=== PATIENT | female | born 1940 | race Caucasian/White ===

== ENCOUNTER 2020-11-21 17:58 | Emergency (ER) | payer MEDICARE, OTHER ==
[~2020-11-21] VITALS: Ht 167.6 cm; Wt 95.2 kg
[~2020-11-21 17:58] MED LIST: Icaps Areds Fo1 EACH; OSTERA TABLET1 EACH; VIT1CAPS12 PO
[2020-11-21] MEDS ORDERED: VITAMIN B-1250 MCG PO (18:18)
[2020-11-21] MEDS ORDERED: TURMERIC500 M2 PO (18:18)
[2020-11-21] MEDS ORDERED: VIT1CAPS12 PO (18:18)
[2020-11-21] MEDS ORDERED: VITAMIN D31000 UNI1 PO (18:19)
== END 2020-11-21 20:22 | disposition home or self-care (01) ==
LOC: ER 17:58
DX: M16.0 Bilateral primary osteoarthritis of hip (principal)
CPT/HCPCS: 73502; 96372; 99283-25; A9270; J1885

== ENCOUNTER 2021-09-14 22:01 | Emergency (ER) | payer MEDICARE, OTHER ==
[~2021-09-14] VITALS: Ht 167.6 cm; Wt 90.7 kg
[~2021-09-14 22:01] MED LIST changes: +TURMERIC500 M2 PO; +VITAMIN B-1250 MCG PO; +VITAMIN D31000 UNI1 PO
[2021-09-15] MEDS ORDERED: OXYC5 PO (02:25)
== END 2021-09-15 02:53 | disposition home or self-care (01) ==
LOC: ER 22:01
DX: S42.291A Other displaced fracture of upper end of right humerus, initial encounter for closed fracture (principal); S00.83XA Contusion of other part of head, initial encounter; S50.311A Abrasion of right elbow, initial encounter; W10.9XXA Fall (on) (from) unspecified stairs and steps, initial encounter
CPT/HCPCS: 73030; A9270

== ENCOUNTER 2021-09-20 11:01 | Day surgery (SDC) | payer MEDICARE, OTHER ==
[~2021-09-20] VITALS: Ht 167.6 cm; Wt 91.3 kg
[~2021-09-20 11:01] MED LIST changes: +ACET500 PO; +OXYC5 PO; +Percocet 5-3251 EACH PO
[2021-09-20] MEDS ORDERED: VICODIN HP 10-1 EAC1 PO (11:59)
--- NOTE | 2021-09-20 12:01 | NUR ---
Ambulatory in Day Surgery History, Chart, Medications and Allergies reviewed before start of procedure. History, Chart, Medications and Allergies reviewed before start of procedure. Patient confirms NPO status and agrees with scheduled surgery. Patient States Post-Procedure ride home has been arranged.
--- NOTE | 2021-09-21 04:48 | NUR ---
PT A&OX4, 1PA TO BSC AND CALLS APPROPRIATELY, ABLE TO MAKE NEEDS KNOWN. POST OP DAY 1 FOR TOTAL SHOULDER REPLACEMENT, R SHOULDER DRESSING CDI, CSM INTACT. PAIN WELL CONTROLLED WITH PRN TORADOL. PT RESTS BETWEEN CARES, SLEEPS 6+ HOURS THIS SHIFT. PT ABLE TO TOLERATE PO LIQUIDS. TAKING MEDS WHOLE WITH THINS. WILL CONTINUE TO MONITOR THIS PT AND GIVE HANDOFF REPORT TO ONCOMING NURSE.
[2021-09-21 04:58] LABS: BASOPHILS ABSOLUTE AUTO 0.01 K/mm3 (0.00-0.23); BASOPHILS PERCENT AUTO 0 % (0-2); EOSINOPHILS PERCENT AUTO 0 % (0-6); Hematocrit 29.5 % (33.0-51.0); Hemoglobin 9.8 g/dL (11.5-16.0); IMMATURE GRAN ABSOLUTE AUTO 0.01 K/mm3 (0.00-0.10); IMMATURE GRAN PERCENT AUTO 0 % (0-1); LYMPHOCYTES ABSOLUTE AUTO 1.03 K/mm3 (0.84-5.20); LYMPHOCYTES PERCENT AUTO 14 % (21-46); MONOCYTES ABSOLUTE AUTO 0.54 K/mm3 (0.16-1.47); MONOCYTES PERCENT AUTO 8 % (4-13); Mean Corpuscular HGB 32.8 pg (26.0-34.0); Mean Corpuscular HGB Conc 33.2 g/dL (31.5-36.5); Mean Corpuscular Volume 99 fL (80-100); NEUTROPHILS ABSOLUTE AUTO 5.63 K/mm3 (1.96-9.15); NEUTROPHILS PERCENT AUTO 78 % (41-73); Platelet Count 134 K/mm3 (150-400); RDW Coefficient Variation 13.4 % (11.7-14.2); RDW Standard Deviation 48.3 fL (35.1-46.3); Red Blood Cell Count 2.99 M/mm3 (3.80-5.20); White Blood Cell Count 7.22 K/mm3 (4.00-11.30)
[2021-09-21 05:22] LABS: Bun/Creatinine Ratio 23.3 (12.0-20.0); Calcium, Blood 8.1 mg/dL (8.5-10.1); Creatinine, Blood 0.9 mg/dL (0.40-1.00); Potassium, Blood 4.6 mmol/L (3.5-5.5)
--- NOTE | 2021-09-21 11:31 | NUR ---
PT CLEARED THERAPY. NO OT AVAILABLE ON WEEKEND. OKAY TO DC PER DR CHRISTENSEN. FAMILY AT BEDSIDE.
--- NOTE | 2021-09-21 12:01 | NUR ---
DISCHARGED PT CLEARED PT. OT NOT AVAILABLE, NOTIFIED DR CHRISTENSEN. DC'D IVS, CATHETERS INTACT. REVIEWED DC INSTRUCTIONS W/PATIENT AND FAMILY; VERBALIZED UNDERSTANDING. PT LEFT UNIT IN WC W/POSSESSIONS IN HAND, ACCOMPANIED BY FAMILY TO RIDE OUTSIDE.
== END 2021-09-21 12:00 | disposition home or self-care (01) ==
LOC: ORSCMMR 11:01 → ORD 12:30 → SURS 19:25 → ORSCMMR 09-21 12:00
PROVIDERS: Orthopaedic Surgery
PROC: 0RRJ00Z Replacement of Right Shoulder Joint with Reverse Ball and Socket Synthetic Substitute, Open Approach (ICD-10-PCS; principal; 2021-09-20 12:30)
DX: S42.251A Displaced fracture of greater tuberosity of right humerus, initial encounter for closed fracture (principal); W18.31XA Fall on same level due to stepping on an object, initial encounter; E66.9 Obesity, unspecified; Z68.32 Body mass index [BMI] 32.0-32.9, adult
CPT/HCPCS: 36415; 73030; 80048; 83735; 85025; 94760; 97110; 97161; 97530; A9270; C1713; C1776; J0690; J1100; J1885; J2250; J2370; J2405; J2704; J3010; J7120

== ENCOUNTER 2023-08-24 10:36 | Day surgery (SDC) | payer MEDICARE, OTHER ==
[~2023-08-24] VITALS: Ht 167.6 cm; Wt 102.0 kg
[2023-08-24] VITALS (13 sets, daily range): BP systolic 99–138; BP diastolic 52–88
[~2023-08-24 10:36] MED LIST changes: +IBUP400 PO; +Lactated Ringer's 1,000 ML IV SCH; +PRESERVISION L1 EAC2 PO; +VICODIN HP 10-1 EAC1 PO
[2023-08-24] MEDS ORDERED: MERIBIN5 MG PO (10:53)
[2023-08-24] MEDS ORDERED: Norco 10-325 T1 EACH PO (10:54)
[2023-08-24] MEDS ORDERED: Acetaminophen 500 MG Tab PO SCH ×2 (11:05→16:00)
[2023-08-24] MEDS ORDERED: Ropivacaine 0.5% HCl/Pf 123.125 MG,EPINEPHrine HCL 0.25 MG,Ketorolac Tromethamine 15 MG... INFIL SCH (11:05)
[2023-08-24] MEDS ORDERED: CeFAZolin Sodium 2,000 MG in NS 100 ML IV SCH ×2 (11:05→21:00)
[2023-08-24] MEDS ORDERED: TRANEXAMIC ACID IV SCH (11:05)
[2023-08-24] MEDS ORDERED: NS IV SCH (11:05)
[2023-08-24] MEDS ORDERED: Chlorhexidine Mouth Care 15 ML UDC MT SCH (11:05)
[2023-08-24] MEDS ORDERED: OxyCODONE HCL 10 MG TABCR PO SCH (11:05)
[2023-08-24] MEDS ORDERED: Tranexamic Acid 100 ML IV SCH (11:10)
--- NOTE | 2023-08-24 12:25 | NUR ---
DR CHRISTENSEN NOTIFIED OF SMALL SCRATCH NOTED ON PT'S RIGHT KNEE. OKAY TO PROCEDE PER DR CHRISTENSEN.
[2023-08-24] MEDS ORDERED: propofoL 60 ML IV ONE (12:34)
[2023-08-24] MEDS ORDERED: FentaNYL Citrate 50 MCG/ML 2 ML Injection ONE (12:34)
[2023-08-24] MEDS ORDERED: Glycopyrrolate 0.2 MG/ML 5ML VIAL ONE (12:58)
[2023-08-24] MEDS ORDERED: ePHEDrine Sulfate 50 MG/ML 1ML Injection ONE (12:58)
[2023-08-24] MEDS ORDERED: Ondansetron HCl 2 MG / ML 2ML Vial ONE (12:58)
[2023-08-24] MEDS ORDERED: Dexamethasone Sod Phos 10 MG/ML 1ML VIAL ONE (12:58)
[2023-08-24] MEDS ORDERED: propofoL 20 ML IV ONE (13:37)
[2023-08-24] MEDS ORDERED: HYDROmorphone HCl/Pf 1MG SYR IV PRN (14:45)
[2023-08-24] MEDS ORDERED: Ondansetron HCl 2 MG / ML 2ML Vial IV PRN (14:45)
[2023-08-24] MEDS ORDERED: Lactated Ringer's 1,000 ML IV SCH (14:45)
[2023-08-24] MEDS ORDERED: Magnesium Hydroxide Conc 10 ML UDC PO PRN (14:45)
[2023-08-24] MEDS ORDERED: Metoclopramide HCl 5MG / ML 2ML Vial IV PRN (14:50)
[2023-08-24] MEDS ORDERED: Bisacodyl 10 MG Supp PR PRN (14:50)
[2023-08-24] MEDS ORDERED: OxyCODONE HCL 5 MG TAB PO PRN ×2 (14:50→14:55)
[2023-08-24] MEDS ORDERED: DiphenhydrAMINE HCL 25 MG Cap PO PRN (14:50)
[2023-08-24] MEDS ORDERED: Promethazine HCl 25 MG Tab PO PRN (14:55)
[2023-08-24] MEDS ORDERED: Ketorolac Tromethamine 15mg Vial IV SCH (18:00)
--- NOTE | 2023-08-24 18:38 | NUR ---
SHIFT SUMMARY [facility] POD 0. WORKED WITH PT THIS AFTERNOON. PAIN MANAGED WELL PER EMAR. AMBULATED FROM BED TO CHAIR WITH ONE PERSON ASSIST. A&O X4, VSS, PPP, LUNGS CLEAR. INCISION SITE COVERED WITH AQUACEL, NO DRAINAGE NOTED. AWAITING POST OP VOID. DISCHARGE HOME PLANNED FOR TOMORROW MORNING.
[2023-08-24] MEDS ORDERED: Docusate Sodium 100 MG Cap PO SCH (21:00)
[2023-08-24] MEDS ORDERED: Cholecalciferol 1000 Unit Tablet (=25MCG) PO SCH (21:00)
[2023-08-25 03:03] VITALS: BP 128/63
[2023-08-25 05:41] LABS: BASOPHILS PERCENT AUTO 0 % (0-2); EOSINOPHILS PERCENT AUTO 0 % (0-6); Hematocrit 36.5 % (33.0-51.0); Hemoglobin 12.3 g/dL (11.5-16.0); IMMATURE GRAN ABSOLUTE AUTO 0.02 K/mm3 (0.00-0.10); IMMATURE GRAN PERCENT AUTO 0 % (0-1); LYMPHOCYTES PERCENT AUTO 13 % (21-46); MONOCYTES ABSOLUTE AUTO 0.45 K/mm3 (0.16-1.47); MONOCYTES PERCENT AUTO 8 % (4-13); Mean Corpuscular HGB 32.5 pg (26.0-34.0); Mean Corpuscular HGB Conc 33.7 g/dL (31.5-36.5); Mean Corpuscular Volume 97 fL (80-100); Mean Platelet Volume 9.3 fL (9.1-12.4); NEUTROPHILS ABSOLUTE AUTO 4.37 K/mm3 (1.96-9.15); NEUTROPHILS PERCENT AUTO 79 % (41-73); Platelet Count 124 K/mm3 (150-400); RDW Coefficient Variation 13.2 % (11.7-14.2); Red Blood Cell Count 3.78 M/mm3 (3.80-5.20); White Blood Cell Count 5.54 K/mm3 (4.00-11.30)
[2023-08-25 06:08] LABS: Bun/Creatinine Ratio 16.9 (12.0-20.0); Calcium, Blood 8.6 mg/dL (8.5-10.1); Creatinine, Blood 0.94 mg/dL (0.40-1.00); Potassium, Blood 4.6 mmol/L (3.5-5.5)
[2023-08-25 07:21] VITALS: BP 118/56
--- NOTE | 2023-08-25 07:42 | NUR ---
POD 1 S/P R TKA. PT VSS T/O NIGHT. DRESSING CDI, POLAR PACK IN PLACE. PEDAL PULSES AND CAP REFILL WNL, PT DENIED N/T. PT REP PAIN MINIMAL, MED W/5 MG OXYCODONE AND SCHEDULED MEDS W/REP RELIEF. PT MARNIE PO, DENIED N/V, IS VOIDING URINE W/O DIFFICULTY. PT UP OOB W/FWW+SBA, MARNIE WELL. PLAN TO MOBILZE W/PT AND DC HOME WHEN CLEARED.
[2023-08-25] MEDS ORDERED: ASPI81CH PO (08:35)
[2023-08-25] MEDS ORDERED: OXYC5 PO (08:36)
[2023-08-25] MEDS ORDERED: Aspirin 81 MG Chew PO SCH (09:00)
--- NOTE | 2023-08-25 11:02 | NUR ---
DISCHARGE POD 1 RTKA PT CLEARED THERAPY THIS MORNING, AMBULATING WELL WITH WALKER. AQUACEL REMAINS CDI, SMALL PEN SIZED DRAINAGE ON BANDAGE. UNCHANGED SINCE PREVIOUS SHIFT. POLAR SHAVONNE ON DURING SHIFT. PAIN WELL CONTROLLED PER EMAR. TOLERATING DIET WELL. VOIDING IN BATHROOM. ALL INSTRUCTIONS GONE OVER WITH PATIENT. EXTRA DRESSINGS SENT. NO FURTHER QUESTIONS AT THIS TIME. TAKEN OUT TO CAR VIA WHEELCHAIR. ALL BELONGINGS WITH PATIENT.
== END 2023-08-25 10:40 | disposition home or self-care (01) ==
LOC: ORSCMMR 10:36 → SURS 15:10 → ORSCMMR 08-25 10:40
PROVIDERS: Orthopaedic Surgery
PROC: 0SRC0JA Replacement of Right Knee Joint with Synthetic Substitute, Uncemented, Open Approach (ICD-10-PCS; principal; 2023-08-24 13:30)
DX: M17.11 Unilateral primary osteoarthritis, right knee (principal); Z96.652 Presence of left artificial knee joint; Z96.611 Presence of right artificial shoulder joint; E66.9 Obesity, unspecified; Z68.37 Body mass index [BMI] 37.0-37.9, adult; I12.9 Hypertensive chronic kidney disease with stage 1 through stage 4 chronic kidney disease, or unspecified chronic kidney disease; N18.9 Chronic kidney disease, unspecified; Z79.899 Other long term (current) drug therapy
CPT/HCPCS: 27447; 0055T; 36415; 73560-RT; 80048; 83735; 85025; 97110; 97116; 97162; A9270; C1713; C1776; J0171; J0690; J0735; J1100; J1885; J2405; J2704; J2795; J3010; J7120

== ENCOUNTER 2024-02-17 11:55 | Day surgery (SDC) | payer MEDICARE, OTHER ==
[~2024-02-17] VITALS: Ht 167.6 cm; Wt 98.7 kg
[~2024-02-17 11:55] MED LIST changes: +ASPI81CH PO; +Balanced Salt Epinephrine Irrigation Solution 500 mL IR SCH; -Lactated Ringer's 1,000 ML IV SCH; +Lidocaine HCl/Pf 1% 5 ML VIAL XX SCH; +MERIBIN5 MG PO; +Moxifloxacin HCL 0.5 MG/0.1 ML 0.4MLSYR RIGHTEYE SCH; +NS 500 ML IV ONE; +Norco 10-325 T1 EACH PO; +OXAYDO5 M1 PO; +PHENYLEPHRINE\\TROPICAMIDE\\TETRACAINE OPHTHALMIC DILATING SOLN RIGHTEYE PRN; +Povidone-Iodine 450 DROP/30 ML Solution ONE; +Povidone-Iodine 450 DROP/30 ML Solution RIGHTEYE SCH; +Tetracaine HCl/Pf 0.5% Opth Soln 4 ml ONE
[2024-02-17] MEDS ORDERED: NS 500 ML IV ONE (12:36)
[2024-02-17] MEDS ORDERED: TURMERIC500 M2 PO (12:38)
[2024-02-17] MEDS ORDERED: BIOTIN5000 MC4 PO (12:38)
[2024-02-17] MEDS ORDERED: PRESERVISION A1 EAC5 PO (12:39)
[2024-02-17] MEDS ORDERED: Midazolam HCl 1MG / ML 2ML Vial ONE (13:06)
[2024-02-17] MEDS ORDERED: Tetracaine HCl 0.5% Opth Soln 15 ml RIGHTEYE ONE (13:08)
[2024-02-17 13:34] VITALS: BP 133/73
== END 2024-02-17 13:49 | disposition home or self-care (01) ==
LOC: ORSCSDS 11:55
PROVIDERS: Student in an Organized Health Care Education/Training Program
PROC: 08RJ3JZ Replacement of Right Lens with Synthetic Substitute, Percutaneous Approach (ICD-10-PCS; principal; 2024-02-17 13:30)
DX: H25.813 Combined forms of age-related cataract, bilateral (principal); E66.9 Obesity, unspecified; Z68.35 Body mass index [BMI] 35.0-35.9, adult
CPT/HCPCS: J2250; J7040; V2632

== ENCOUNTER 2024-02-23 11:05 | Day surgery (SDC) | payer MEDICARE, OTHER ==
[~2024-02-23] VITALS: Ht 167.6 cm; Wt 97.7 kg
[~2024-02-23 11:05] MED LIST changes: +BIOTIN5000 MC4 PO; +Moxifloxacin HCL 0.5 MG/0.1 ML 0.4MLSYR LEFTEYE SCH; -Moxifloxacin HCL 0.5 MG/0.1 ML 0.4MLSYR RIGHTEYE SCH; +NS 1,000 ML ONE; +PHENYLEPHRINE\\TROPICAMIDE\\TETRACAINE OPHTHALMIC DILATING SOLN LEFTEYE PRN; -PHENYLEPHRINE\\TROPICAMIDE\\TETRACAINE OPHTHALMIC DILATING SOLN RIGHTEYE PRN; +PRESERVISION A1 EAC5 PO; +Povidone-Iodine 450 DROP/30 ML Solution LEFTEYE SCH; -Povidone-Iodine 450 DROP/30 ML Solution RIGHTEYE SCH
[2024-02-23] MEDS ORDERED: NS 1,000 ML IV ONE ×2 (11:27)
[2024-02-23] MEDS ORDERED: Midazolam HCl 1MG / ML 2ML Vial ONE (12:16)
[2024-02-23 12:41] VITALS: BP 127/66
--- NOTE | 2024-02-23 12:50 | NUR ---
02/23/24 1250 Melani Hunter PT UP TO RECLINER AND DRINKING APPLE JUICE WITHOUT N/V. HER RIDE AMY (DAUGHTER IN LAW) TOOK THE DOG HOME AND IS A LITTLE MORE THAN 30 MINUTES AWAY.
== END 2024-02-23 12:55 | disposition home or self-care (01) ==
LOC: ORSCSDS 11:05
PROVIDERS: Student in an Organized Health Care Education/Training Program
PROC: 08RK3JZ Replacement of Left Lens with Synthetic Substitute, Percutaneous Approach (ICD-10-PCS; principal; 2024-02-23 12:30)
DX: H25.812 Combined forms of age-related cataract, left eye (principal); Z96.1 Presence of intraocular lens; H35.3122 Nonexudative age-related macular degeneration, left eye, intermediate dry stage; E66.9 Obesity, unspecified; Z68.34 Body mass index [BMI] 34.0-34.9, adult
CPT/HCPCS: J2250; J7040; V2632